=== PATIENT | male | born 1990 | race Caucasian/White ===

== ENCOUNTER 2020-08-04 08:29 | Outpatient (REF) | payer BC, MEDICAID, SELFPAY ==
--- NOTE | 2020-08-04 10:00 | MHC.AU.P13 ---
Adult Audiological Evaluation Date of Visit: 08/04/20 Reason for Appointment: Audiological re-evaluation to monitor hearing loss. Patient was accompanied by his mother to today's visit. She denies any changes to his hearing or medical history. Does patient feel they have a hearing loss?: Yes If Yes, Which Ear?: Both Ears Has hearing been tested previously?: Yes Previous Hearing Test Results: [facility] [place], 03/25/19- Mild hearing loss at 250, 500, and 8000 Hz, dropping to a severe SNHL at 2000 Hz for both ears. Medical History: Medical History: Developmental Disorder/Delay, Down Syndrome Medical History (Other): Moyamoya disease, legally blind Otoscopy: Right Ear: Unremarkable Left Ear: Unremarkable Tympanometry: Right Ear: Normal Middle Ear System (Type A) Left Ear: Normal Middle Ear System (Type A) Hearing Evaluation: Transducer(s) Used: Insert Earphones, Bone Conduction Method: Conventional Audiometry Stimuli Used: Pure Tones Right Ear: Description of Hearing: Mild sensorineural hearing loss (SNHL) from 250-500 Hz, sloping to a moderate SNHL at 1000 Hz, a moderately severe SNHL at 2000 Hz, and rising to a moderate SNHL at 4000 Hz and normal hearing at 8000 Hz. Left Ear: Description of Hearing: Mild sensorineural hearing loss (SNHL) from 250-500 Hz, sloping to a moderately severe SNHL at 1000 Hz, a severe SNHL at 2000 Hz, and rising to a moderately severe SNHL at 4000 Hz and normal hearing at 8000 Hz. Speech Recognition Threshold (SRT): Method Used: Monitored Live Voice Stimuli Used: Spondee Words Right Ear: 35 dBHL Left Ear: 40 dBHL Word Discrimination: Method: Not performed at today's visit. Comparison: Compared to the most recent evaluation: Hearing is stable. Recommendations: Recommendations: Audiological re-evaluation in one year. See Hearing Aid Follow-Up note for more information. Recommendations (Other): Hearing aid maintenance performed today. Left hearing aid is being sent out for repair. Diagnosis: Primary Diagnosis: H90.3 Bilateral Sensorineural Hearing Loss Services Performed: Services Performed: Conditioned Play Audiometry (CPT 65642) Speech Audiometry Threshold (SRT/SAT) (CPT 64531) Tympanometry (CPT 64209) Signature: Provider: Lizbeth Robles, [facility]
== END 2020-08-04 08:30 | disposition home or self-care (01) ==
LOC: HO.SH 08:29
PROVIDERS: PCP Internal Medicine; Referring Provider Internal Medicine; Visit Provider Internal Medicine
DX: H90.3 Sensorineural hearing loss, bilateral (principal)
CPT/HCPCS: 92555; 92567; 92582; 92593; 99499

== ENCOUNTER 2020-08-20 14:56 | Outpatient (REF) | payer BC, MEDICAID, SELFPAY | END 2020-08-20 14:57 | disposition home or self-care (01) | LOC: HO.HAP 14:56 | PROVIDERS: PCP Internal Medicine; Referring Provider Internal Medicine; Visit Provider Internal Medicine | DX: Z46.1 Encounter for fitting and adjustment of hearing aid (principal) | CPT/HCPCS: V5014 ==

== ENCOUNTER 2021-01-15 14:30 | Outpatient (REF) | payer BC, MEDICAID, SELFPAY | END 2021-01-15 14:31 | disposition home or self-care (01) | LOC: HO.HAP 14:30 | PROVIDERS: Visit Provider Internal Medicine | DX: Z46.1 Encounter for fitting and adjustment of hearing aid (principal); H90.3 Sensorineural hearing loss, bilateral | CPT/HCPCS: 92593; 99499 ==

== ENCOUNTER 2021-03-25 13:04 | Outpatient (REF) | payer BC, MEDICAID, SELFPAY ==
--- NOTE | 2021-03-25 14:46 | MHC.AU.AHA ---
Adult Audiological Evaluation Date of Visit: 03/26/21 Reason for Appointment: Audiological evaluation to monitor hearing loss and to pursue new hearing aids. Patient has accompanied by his mother to today's visit. He has a longstanding history of bilateral sensorineural hearing loss and hearing aid use. His right hearing aid is not currently working. His mother denies any changes to his hearing or medical history. Previous Hearing Test Results: [facility] [place], 08/04/2020- Mild to moderately severe sensorineural hearing loss in a cookie-bite configuration bilaterally. Ear History: History of Ear Wax Buildup: Both Ears Medical History: Medical History: Developmental Disorder/Delay, Down Syndrome Medical History: Moyamoya disease, legally blind Hearing Instrument History- Right Ear: Core Oven Tender: Phonak Model: Erik M70-M Serial Number: [id number] Battery Size: 312 Repair Warranty: 01/16/2020 (repair warranty) Loss and Damage Warranty: Dispensed By: [facility] Date of Fittin11/18/2015 Hearing Instrument History- Left Ear: Core Oven Tender: Oticon Model: Erik M70-M Serial Number: [id number] Battery Size: 13 Warranty: 08/22/2021 (repair warranty) Loss and Damage Warranty: Dispensed By: [facility] Date of Fittin11/18/2015 Otoscopy: Right Ear: Unremarkable Left Ear: Non-occluding cerumen removed w/o incident. Clear canal post-wax removal Tympanometry: Tympanometry performed due to: To assess integrity of the middle ear system Right Ear: Normal Middle Ear System (Type A) Left Ear: Hypercompliant Middle Ear System (Type Ad) Hearing Evaluation: Transducer(s) Used: Insert Earphones, Bone Conduction Method: Conditioned Play Audiometry Stimuli Used: Pure Tones Right Ear: Description of Hearing: Mild sensorineural hearing loss (SNHL) from 250-750 Hz, sloping to a moderate SNHL at 1000 Hz, a moderately severe SNHL at 7236-8000 Hz, and rising to a modearte SNHL at 4000 Hz, mild hearing loss at 6000 Hz, and normal hearing at 8000 Hz. Left Ear: Description of Hearing: Mild sensorineural hearing loss (SNHL) from 250-500 Hz, sloping to a moderate SNHL from 750-1000 Hz, a moderately severe SNHL at 1500, a severe SNHL at 2000 Hz, and rising to a moderately severe SNHL at 3000 Hz, moderate SNHL at 4000 Hz, mild hearing loss at 6000 Hz, and normal hearing at 8000 Hz. Speech Recognition Threshold (SRT): Method Used: Monitored Live Voice Stimuli Used: Spondee Words Right Ear: 30 dBHL Left Ear: 40 dBHL Word Discrimination: Method: Not performed at today's visit. Comparison: Compared to the most recent evaluation: Hearing is stable. Recommendations: Audiological re-evaluation in one year. Medical clearance from a physician is required before fitting. Hearing aid maintenance performed today. See Hearing Aid Evaluation report for more information. Patient is due for updated amplification, as his current set if over 5 years old and the right is not currently working. Hearing aid options were discussed. Hearing aids will be ordered once medical clearance is obtained from his PCP. Diagnosis: Primary Diagnosis: H90.3 Bilateral Sensorineural Hearing Loss Services Performed: Pure Tone- Air & Bone (CPT 53922) Speech Audiometry Threshold (SRT/SAT) (CPT 50551) Tympanometry (CPT 53873) Signature: Provider: Lizbeth Robles, CCC-A
--- NOTE | 2021-03-25 15:56 | MHC.AU.HAS ---
Hearing Aid Evaluation Date of Visit: 03/26/21 Historical Information: Description of Hearing: Mild to moderately severe/severe SNHL in a cookie-bite configuration. Current personal amplification information, if applicable: 2016 Oticon Sensei Pro BTEs Summary: Updated amplification is recommended to facilitate improved communication. Patient's mother notes that they have trouble with the retention of the aids behind his ears, as he has small ears and the current aids are too thick. I recommend a slim tube BTE with custom mold and a size 312 battery to minimize the size of the hearing aid. I do not recommend a CAMERON style aid due very narrow canals, moisture concerns, and frequent wax build-up. Patient and his mother were agreeable to this plan. Hearing Aid Prescription: Based on the individual?s shared listening needs, communication environments, dexterity, desire for connectivity, and personal preferences, the following prescription for amplification has been made: Right ear: Garment Alteration Examiner: Phonak Model: Erik M70-M Battery Size: 312 Color: P3 - Sandalwood (P1 - Sand Beige if sandalwood is not available) Tubing: Size 0 slim tube Type of Mold: Skeleton mold Left ear: Left ear prescription to be same as Right Hearing Aid above: Garment Alteration Examiner: Oticon Model: Erik M70-M Battery Size: 13 Color: P3 - Sandalwood (P1 - Sand Beige if sandalwood is not available) Tubing: Size 1 slim tube Type of Mold: Skeleton mold Plan of Care: Earmold Impressions Taken. Medical Clearance to be requested from PCP/ENT. Hearing Instrument Fitting to be scheduled when materials arrive. Checking with patient's insurance to confirm eligibility. Primary Diagnosis: H90.3 Bilateral Sensorineural Hearing Loss Signature: Provider: Katie Altman, Lizbeth, CCC-A
--- NOTE | 2021-03-25 15:57 | MHC.AU.MED ---
Medical Clearance for Hearing Instrumentation Date: 03/25/21 Patient Name: Jason Bedolla Date of : 1990 Referring Provider: Justin Kim MD We have seen your patient on 03/25/21 and have determined that they are a candidate for amplification (See accompanying report). Specifically, they would benefit from: Hearing aid use in both ears There is a statute that addresses Medical Evaluation Requirements prior to fitting a patient with a hearing aid. According to [place] statute [facility] CMR:6.03(1), (a) General. Except as provided in 265 CMR 6.03(1)(b), a outsole caser shall not sell a hearing aid unless the prospective user has presented to the outsole caser a written statement signed by a licensed physician that states that the patient's hearing loss has been medically evaluated and the patient may be considered a candidate for a hearing aid. The medical evaluation must have taken place within the preceding six months. Please note: Due to the [place] Statute referenced above, we cannot accept a signature other than that of a licensed physician. LABORATORY TECH and PA signatures cannot be accepted. I am in agreement with the above recommendation. There is no medical contraindication for hearing instrumentation. Physician Signature Date Physician Name (Printed)
--- NOTE | 2021-03-25 16:01 | MHC.AU.AHA ---
Adult Audiological Evaluation Date of Visit: 03/26/21 Reason for Appointment: Audiological evaluation to monitor hearing loss and to pursue new hearing aids. Patient has accompanied by his mother to today's visit. He has a longstanding history of bilateral sensorineural hearing loss and hearing aid use. His right hearing aid is not currently working. His mother denies any changes to his hearing or medical history. Previous Hearing Test Results: [facility] [place], 08/04/2020- Mild to moderately severe sensorineural hearing loss in a cookie-bite configuration bilaterally. Ear History: History of Ear Wax Buildup: Both Ears Medical History: Medical History: Developmental Disorder/Delay, Down Syndrome Medical History: Moyamoya disease, legally blind Hearing Instrument History- Right Ear: Feed And Farm Management Adviser: OtEndPlay Model: Lion Semiconductori Pro FarelogixE Serial Number: [id number] Battery Size: 13 Repair Warranty: 01/16/2020 (repair warranty) Loss and Damage Warranty: Dispensed By: [facility] Date of Fittin11/18/2015 Hearing Instrument History- Left Ear: Feed And Farm Management Adviser: Oticon Model: Lion Semiconductori Pro FarelogixE Serial Number: [id number] Battery Size: 13 Warranty: 08/22/2021 (repair warranty) Loss and Damage Warranty: Dispensed By: [facility] Date of Fittin11/18/2015 Otoscopy: Right Ear: Unremarkable Left Ear: Non-occluding cerumen removed w/o incident. Clear canal post-wax removal Tympanometry: Tympanometry performed due to: To assess integrity of the middle ear system Right Ear: Normal Middle Ear System (Type A) Left Ear: Hypercompliant Middle Ear System (Type Ad) Hearing Evaluation: Transducer(s) Used: Insert Earphones, Bone Conduction Method: Conditioned Play Audiometry Stimuli Used: Pure Tones Right Ear: Description of Hearing: Mild sensorineural hearing loss (SNHL) from 250-750 Hz, sloping to a moderate SNHL at 1000 Hz, a moderately severe SNHL at 6592-8557 Hz, and rising to a modearte SNHL at 4000 Hz, mild hearing loss at 6000 Hz, and normal hearing at 8000 Hz. Left Ear: Description of Hearing: Mild sensorineural hearing loss (SNHL) from 250-500 Hz, sloping to a moderate SNHL from 750-1000 Hz, a moderately severe SNHL at 1500, a severe SNHL at 2000 Hz, and rising to a moderately severe SNHL at 3000 Hz, moderate SNHL at 4000 Hz, mild hearing loss at 6000 Hz, and normal hearing at 8000 Hz. Speech Recognition Threshold (SRT): Method Used: Monitored Live Voice Stimuli Used: Spondee Words Right Ear: 30 dBHL Left Ear: 40 dBHL Word Discrimination: Method: Not performed at today's visit. Comparison: Compared to the most recent evaluation: Hearing is stable. Recommendations: Audiological re-evaluation in one year. Medical clearance from a physician is required before fitting. Hearing aid maintenance performed today. See Hearing Aid Evaluation report for more information. Patient is due for updated amplification, as his current set if over 5 years old and the right is not currently working. Hearing aid options were discussed. Hearing aids will be ordered once medical clearance is obtained from his PCP. Diagnosis: Primary Diagnosis: H90.3 Bilateral Sensorineural Hearing Loss Services Performed: Pure Tone- Air & Bone (CPT 85571) Speech Audiometry Threshold (SRT/SAT) (CPT 19049) Tympanometry (CPT 30834) Signature: Provider: Lizbeth Robles, CCC-A
== END 2021-03-25 13:05 | disposition home or self-care (01) ==
LOC: HO.SH 13:04
PROVIDERS: Visit Provider Internal Medicine
DX: Z46.1 Encounter for fitting and adjustment of hearing aid (principal); H90.3 Sensorineural hearing loss, bilateral
CPT/HCPCS: 92553; 92555; 92567; 92591; 92593; V5275

== ENCOUNTER 2021-04-21 09:26 | Outpatient (REF) | payer BC, MEDICAID, SELFPAY | END 2021-04-21 09:27 | disposition home or self-care (01) | LOC: HO.HAP 09:26 | PROVIDERS: Visit Provider Internal Medicine | DX: Z46.1 Encounter for fitting and adjustment of hearing aid (principal); H90.3 Sensorineural hearing loss, bilateral | CPT/HCPCS: V5011; V5014; V5020; V5160; V5261; V5264; V5266 ==

== ENCOUNTER 2021-05-17 10:30 | Outpatient (REF) | payer BC, MEDICAID, SELFPAY | END 2021-05-17 10:31 | disposition home or self-care (01) | LOC: HO.HAP 10:30 | PROVIDERS: Visit Provider Internal Medicine | DX: Z13.89 Encounter for screening for other disorder (principal) ==

== ENCOUNTER 2021-08-25 13:21 | Outpatient (REF) | payer BC, MEDICAID, SELFPAY | END 2021-08-25 13:22 | disposition home or self-care (01) | LOC: HO.HAP 13:21 | PROVIDERS: Visit Provider Internal Medicine | DX: Z13.89 Encounter for screening for other disorder (principal) ==

== ENCOUNTER 2021-08-31 16:33 | Outpatient (REF) | payer BC, MEDICAID, SELFPAY | END 2021-08-31 16:34 | disposition home or self-care (01) | LOC: HO.HAP 16:33 | PROVIDERS: Visit Provider Internal Medicine | DX: Z13.89 Encounter for screening for other disorder (principal) ==

== ENCOUNTER 2022-04-25 08:17 | Outpatient (REF) | payer BC, MEDICAID, SELFPAY ==
--- NOTE | 2022-04-28 12:03 | MHC.AU.AHA ---
Adult Audiological Evaluation Date of Visit: 04/25/22 Select Banker Used: Not Applicable Reason for Appointment: Audiologic re-evaluation to determine possible change in hearing ability. Jason has a history of bilateral hearing loss and uses binaural hearing aids. He is accompanied today by his mother, and it is reported there are no medical changes since his last test in March 2021. Previous Hearing Test Results: 03/25/2021 [facility] Mild dropping to severe sensorineural hearing loss at 250-2000 Hz, rising to normal hearing thresholds at 8000 Hz bilaterally. Medical History: Medical History: Developmental Disorder/Delay, Down Syndrome Medical History: Moyamoya disease, legally blind Hearing Instrument History- Right Ear: Forest Officer: Phonak Model: Erik M70-M Serial Number: [id number] Battery Size: 312 Repair Warranty: 07/07/2026 Loss and Damage Warranty: 07/07/2026 Dispensed By: [facility] Date of Fittin04/21/2021 Hearing Instrument History- Left Ear: Forest Officer: Oticon Model: Erik M70-M Serial Number: [id number] Battery Size: 312 Warranty: 07/07/2026 Loss and Damage Warranty: 07/07/2026 Dispensed By: [facility] Date of Fittin04/21/2021 Otoscopy: Right Ear: Non-occluding cerumen Left Ear: Non-occluding cerumen Tympanometry: Tympanometry performed due to: To assess integrity of the middle ear system Right Ear: Normal Middle Ear System (Type A) Left Ear: Normal Middle Ear System (Type A) Hearing Evaluation: Transducer(s) Used: Insert Earphones Bone Conduction Method: Conventional Audiometry Stimuli Used: Pure Tones Right Ear: Description of Hearing: Mild loss at 250 and 500 Hz sloping to moderately-severe sensorineural hearing loss at 2000 Hz, rising to normal hearing thresholds at 8000 Hz Left Ear: Description of Hearing: Mild loss at 250 and 500 Hz sloping to severe sensorineural hearing loss at 2000 Hz, rising to normal hearing thresholds at 8000 Hz Speech Recognition Threshold (SRT): Method Used: Monitored Live Voice Stimuli Used: Spondee Words Right Ear: 30 dB HL Left Ear: 35 dB HL Word Discrimination: Method: Not performed at today's visit. Comparison: Compared to the most recent evaluation: Hearing is stable. Recommendations: Audiological re-evaluation in one year. Will send a reminder card. Hearing aid maintenance performed today. Ordering replacement battery doors. Will schedule appointment when received. Diagnosis: Primary Diagnosis: H90.3 Bilateral Sensorineural Hearing Loss Services Performed: Pure Tone- Air & Bone (CPT 73465) Speech Audiometry Threshold (SRT/SAT) (CPT 71524) Tympanometry (CPT 84099) Signature: Provider: Lizbeth Vaz, [facility]
--- NOTE | 2022-04-28 12:14 | MHC.AU.HFU ---
Hearing Instrument Follow-Up- Binaural Date of Visit: 04/25/22 Right Ear: Automotive Software Engineer: Phonak Model: Erik M70-M Serial Number: [id number] Repair Warranty: 07/07/2026 Loss and Damage Warranty: 07/07/2026 Battery Size: 312 Color: P3 - Sandalwood Tubing: Size 0 slim tube Type of Mold: Skeleton mold SN: [id number] Warranty: 08/08/2021 Dispensed By: [facility] Date of Fittin04/21/2021 Left Ear:Automotive Software Engineer: Phonak Model: Erik M70-M Serial Number: [id number] Repair Warranty: 07/07/2026 Loss and Damage Warranty: 07/07/2026 Battery Size: 312 Color: P3 - Sandalwood Tubing: Size 1 slim tube Type of Mold: Skeleton mold SN: [id number] Warranty: 08/08/2021 Type of Wax Guard: Dispensed By: [facility] Date of Fittin04/21/2021 Follow-Up Summary: Mother reports the earmolds consistently come off the slim tubes and having difficulty keeping aids in when removing his face mask. Discussed options of type of face mask for placement of elastics or trying OtoClip, but mother feels they do not want these changes at this time. Contacted Lenore at [facility] to discuss the problem with earmold coming off thin tubes. However, mother wants to stay with the soft material and [facility] says would have to change to had material. There are no other changes [facility] can make. Today I SUPER GLUED MOLDS TO THIN TUBES to see if this would help. Cleaned aids, microphones, and contacts, changed slim tubes. There is evidence of moisture in the left (?) aid and a sticker which helps protect further moisture in the battery door came off during cleaning. As I also could not clean battery door completely, replacement doors were ordered. CALL TO SCHEDULE APPOINTMENT WHEN REPLACEMENT DOORS IN. WILL TEACH MOTHER HOW TO CHANGE DOORS AND GIVE AN EXTRA SET OF DOORS. Recommendations: Hearing instrument follow-up or maintenance as needed. Please contact our clinic with any questions or concerns. Diagnosis Code(s):Primary Diagnosis: H90.3 Bilateral Sensorineural Hearing Loss Signature:Provider: Robina Vaz, [facility]
== END 2022-04-25 08:18 | disposition home or self-care (01) ==
LOC: HO.SH 08:17
PROVIDERS: Visit Provider Internal Medicine
DX: Z01.118 Encounter for examination of ears and hearing with other abnormal findings (principal); H90.3 Sensorineural hearing loss, bilateral
CPT/HCPCS: 92553; 92555; 92567

== ENCOUNTER 2022-05-10 12:48 | Outpatient (REF) | payer BC, MEDICAID, SELFPAY | END 2022-05-10 12:49 | disposition home or self-care (01) | LOC: HO.HAP 12:48 | PROVIDERS: Visit Provider Internal Medicine | DX: Z13.89 Encounter for screening for other disorder (principal) ==

== ENCOUNTER 2022-09-08 08:54 | Outpatient (REF) | payer BC, MEDICAID, SELFPAY ==
--- NOTE | 2022-09-09 15:20 | MHC.AU.HA3 ---
Hearing Instrument Follow-Up- Binaural Date of Visit: 09/08/22 Right Ear: Missael, Model, Color, Serial Number: Simon Pena70-M, #[id number] Boat Outfitter Repair Warranty: 07/07/2026 Boat Outfitter Loss and Damage Warranty: 07/07/2026 [facility] rService Plan: Battery Size: 312 Dispensed By: [facility] Date of Fittin04/21/2021 Left Ear: Missael, Model, Color, Serial Number: Simon Pena70-M, #[id number] Boat Outfitter Repair Warranty: 07/07/2026 Boat Outfitter Loss and Damage Warranty: 07/07/2026 [facility] Service Plan: Battery Size: 312 Dispensed By: [facility] Date of Fittin04/21/2021 Follow-Up Summary: Patient's left mold is not staying on the slim tube. Inspection revealed a tear in the top of the mold, which is causing the slim tube to easily slip out. Patient's mother would like to go back to the traditional tone hooks and tubing, instead of the slim tubes, as they seem to stay on his ears better. Impressions were taken bilaterally without incident and will be sent to [employer]. One pair will be billed to insurance. His mother would like to purchase a second pair to use with his back-up hearing aids. Quoted $245. Recommendations: Patient will be contacted when materials have arrived. Diagnosis Code(s): Primary Diagnosis: H90.3 Bilateral Sensorineural Hearing Loss Signature: Provider: Adolfo Recinos, [facility]
== END 2022-09-08 08:55 | disposition home or self-care (01) ==
LOC: HO.HAP 08:54
PROVIDERS: Visit Provider Internal Medicine
DX: Z46.1 Encounter for fitting and adjustment of hearing aid (principal); H90.3 Sensorineural hearing loss, bilateral
CPT/HCPCS: V5275

== ENCOUNTER 2022-11-22 15:52 | Outpatient (REF) | payer BC, MEDICAID, SELFPAY ==
--- NOTE | 2022-11-22 17:01 | MHC.AU.HFU ---
Hearing Instrument Follow-Up- Binaural Date of Visit: 11/22/22 Right Ear: Phonak Erik M70-M, #[id number], sandalwood Repair Warranty: 07/07/2026 Loss and Damage Warranty: 07/07/2026 Battery Size: 312 Type of Mold: Skeleton mold microsonic Dispensed By: [facility] Date of Fittin04/21/2021 Left Ear: Phonak Erik M70-M, #[id number], sandalwood Repair Warranty: 07/07/2026 Loss and Damage Warranty: 07/07/2026 Battery Size: 312 Type of Mold: Skeleton mold microsonic Dispensed By: [facility] Date of Fittin04/21/2021 Follow-Up Summary: The patient is here today for an ear mold fitting, accompanied by his mother. Erik M70 BTEs slim tubing was replaced with traditional tone hooks bilaterally. New ear molds were cut and measured to the patient's ears. Phonak target programming was updated to reflect tone hooks, most recent audiogram and feedback manager outreach was re-run. Patient reported a comfortable fit and good sound bilaterally. Old slim tubing and molds were given to patient's mother per request. A second pair of ear molds were cut and measured to the patient's ears for his back-up Oticon BTE hearing aids. Good fit noted as well. One pair of ear molds billed to insurance. One pair was paid for out of pocket, paid $245. Additional follow-up as needed. Diagnosis Code(s): Primary Diagnosis: H90.3 Bilateral Sensorineural Hearing Loss Signature: Provider: Lizbeth Marques, [facility]
== END 2022-11-22 15:53 | disposition home or self-care (01) ==
LOC: HO.HAP 15:52
PROVIDERS: Visit Provider Internal Medicine
DX: Z46.1 Encounter for fitting and adjustment of hearing aid (principal); H90.3 Sensorineural hearing loss, bilateral
CPT/HCPCS: V5264

== ENCOUNTER 2022-11-22 16:25 | Outpatient (REF) | payer SELFPAY | END 2022-11-22 16:26 | disposition home or self-care (01) | LOC: HO.HAP 16:25 | PROVIDERS: Visit Provider Internal Medicine | DX: Z46.1 Encounter for fitting and adjustment of hearing aid (principal); H90.3 Sensorineural hearing loss, bilateral | CPT/HCPCS: V5264 ==

== ENCOUNTER 2023-01-13 15:17 | Outpatient (REF) | payer BC, MEDICAID, SELFPAY | END 2023-01-13 15:18 | disposition home or self-care (01) | LOC: HO.HAP 15:17 | PROVIDERS: Visit Provider Internal Medicine | DX: Z13.89 Encounter for screening for other disorder (principal) ==

== ENCOUNTER 2024-03-25 08:44 | Outpatient (REF) | payer BC, MEDICAID, SELFPAY ==
--- NOTE | 2024-03-25 09:49 | MHC.AU.HA3 ---
Hearing Instrument Follow-Up- Binaural Date of Visit: 03/25/24 Right Ear: Missael, Model, Color, Serial Number: Simon Pena70-M, #[id number], sandalwood Manager E Commerce Repair Warranty: 07/07/2026 Manager [employer] Commerce Loss and Damage Warranty: 07/07/2026 Battery Size: 312 Earmold/Dome/CShell/SlimTip:Skeleton mold microsonic Dispensed By: [facility] Date of Fittin04/21/2021 Left Ear: Missael, Model, Color, Serial Number: Simon Pena70-M, #[id number], sandalwood Manager E Commerce Repair Warranty: 07/07/2026 Manager [employer] Commerce Loss and Damage Warranty: 07/07/2026 Battery Size: 312 Earmold/Dome/CShell/SlimTip: Skeleton mold microsonic Dispensed By: [facility] Date of Fittin04/21/2021 Follow-Up Summary: Here for evaluation. See Audiogram. Maintenance performed on current pair of Phonak hearing aids as well as back up left Oticon hearing aid. All tubes stiff and in need of replacement. Cleaned aids, cleaned earmolds, replaced tubing, cleaned debris out of tonehooks. Listening check positive for all hearing aids after cleaning. Recommendations: Recommendations: Hearing instrument follow-up or maintenance as needed. Diagnosis Code(s): Primary Diagnosis: H90.3 Bilateral Sensorineural Hearing Loss Signature: Provider: Adolfo Storm, [facility]
== END 2024-03-25 08:45 | disposition home or self-care (01) ==
LOC: HO.SH 08:44
PROVIDERS: Visit Provider Internal Medicine
DX: Z01.118 Encounter for examination of ears and hearing with other abnormal findings (principal); H90.3 Sensorineural hearing loss, bilateral
CPT/HCPCS: 92555; 92582; 92593; 99499

== ENCOUNTER 2025-08-20 10:11 | Outpatient (REF) | payer BC, MEDICAID, SELFPAY ==
--- NOTE | 2025-08-20 16:54 | MHC.AU.HA3 ---
Hearing Instrument Follow-Up- Binaural Date of Visit: 08/20/25 Right Ear: Missael, Model, Color, Serial Number: Simon Valencia M70-M SN: [id number] Color: Sandalwood Subcontract Manager Repair Warranty: 07/07/2026 Subcontract Manager Loss and Damage Warranty: 07/07/2026 Battery Size: 312 Earmold/Dome/CShell/SlimTip:Skeleton mold microsonic Dispensed By: [facility] Date of Fittin04/21/2021 Left Ear: Missael, Model, Color, Serial Number: Simon Valencia M70-M SN: [id number] Color: Sandalwood Subcontract Manager Repair Warranty: 07/07/2026 Subcontract Manager Loss and Damage Warranty: 07/07/2026 Battery Size: 312 Earmold/Dome/CShell/SlimTip: Skeleton mold microsonic Dispensed By: [facility] Date of Fittin04/21/2021 Follow-Up Summary: Accompanied by mom Leena. Updated hearing test - see audio. Reported newer right Phonak CALDERÓN has static/distortion. Confirmed via listening check - Sent to [employer]. Cleaned 4 other HAs (4) (Left Phonak Erik, left and right Oticon Sensei Pros, and left older Oticon BTE - no model name) and 7 EMs (2) [id number]. Mom reported she prefers to have back up EMs ready once tubing gets hard. Replaced all 7 tubes. Vacuumed microphones. Cleaned battery contacts and doors. Ran through dehumidifier. Listening check demonstrated HAs amplifying. Currently wearing Oticon Sensei Pro BTEs until right Phonak CALDERÓN returns from repair. Mom has all other HAs and EMs to hold as back up. Recommendations:Patient will be contacted when materials have arrived. Diagnosis Code(s): Primary Diagnosis: H90.3 Bilateral Sensorineural Hearing Loss Signature: Provider: Adolfo Garg, [facility]
--- OUTSIDE RECORDS SUMMARY | 2025-08-20 19:23 | XMS_ITS | Encounter Summary ---
Author Organization [facility] Address [address] [place] [address] Phone Care Team Providers Care Exercise Scientist Name Role Phone Justin Kim Primary Care Provider Justin Kim Unavailable Justin Kim Unavailable Justin Kim Unavailable Encounter Details Date Type Department Care Team (Late st Contact Info) Description 04/15/2024 Abstract Health Information Management [address] [place] [id number] Provider, Unable To Verify [address] [place] [address] Social History Tobacco Use Types Packs/Day Years Used Date Smoking Tobacco: Never Assessed Sex and Gender Information Value Date Recorded Sex Assigned at Not on file Legal Sex Male 2:24 PM EDT Gender Identity Not on file Sexual Orientation Not on file documented as of this encounter Plan of Treatment Not on file documented as of this encounter Visit Diagnoses Not on filedocumented in this encounter Care Teams Exercise Scientist Relationship Specialty Start Date End Date Justin Kim [address] [place] [address] PCP - General 09/02/15 Justin Kim [address] [place] [address] PCP - Insurance PCP 04/03/18 Justin Kim [address] [place] [address] PCP - Clinical PCP 09/09/15 Justin Kim [address] [place] [address] PCP - Insurance Identified PCP 04/11/24 documented as of this encounter
--- OUTSIDE RECORDS SUMMARY | 2025-08-20 19:23 | XMS_ITS | Encounter Summary ---
Author Organization [facility] Address [address] [place] [address] Care Team Providers Care Dining Manager Name Role Phone Justin Kim MD Primary Care Provider Unavail able Reason for Visit * Reason Onset Date Comments Call From Patient Family 02/13/2018 Encounter Details Date Type Department Care Team Description 02/13/2018 Telephone Adult Medicine [address] [address] Justin Kim MD Call From Patient Family Social History Tobacco Use Types Packs/Day Years Used Date Smoking Tobacco: Never Smokeless Tobacco: Never Alcohol Use Standard Drinks/Week Comments No 0 (1 standard drink = 0.6 oz pur e alcohol) Sex Assigned at Date Recorded Not on file documented as of this encounter Miscellaneous Notes * Telephone Encounter - Reyna Lovett - 02/13/2018 11:20 AM EDT Caller requesting call back from provider: Is the caller the patient? NO If caller is not the patient, what is the callers name? Leena- mother- on verbal Reason for call back: Leena states she is returning [employer]'s call, I did relay the message that the form was ready for pick-up, but she states there was a message stating that there were questions with the other form- she can be reached at the above number after 3:00 Caller offered to speak with the nurse for assistance: YES Response: Patient offered to speak with nurse for assistance and patient agreed. Message forwarded to nurse. documented in this encounter Plan of Treatment Not on file documented as of this encounter Visit Diagnoses Not on filedocumented in this encounter Care Teams Dining Manager Relationship Specialty Start Date End Date Justin Kim MD PCP - General Internal Medicine 11/09/12 documented as of this encounter
--- OUTSIDE RECORDS SUMMARY | 2025-08-20 19:23 | XMS_ITS | Encounter Summary ---
Author Organization [facility] Address [address] [place] [address] Care Team Providers Care Dolphin Researcher Name Role Phone Justin Kim MD Primary Care Provider Unavail able Encounter Details Date Type Department Care Team Description 03/11/2021 Pt. Non Urgent Medical Question Medicine/Pediatrics - [address] [address] Justin Kim MD Social History Tobacco Use Types Packs/Day Years Used Date Smoking Tobacco: Never Smokeless Tobacco: Never Alcohol Use Standard Drinks/Week Comments No 0 (1 standard drink = 0.6 oz pur e alcohol) Sex Assigned at Date Recorded Not on file documented as of this encounter Miscellaneous Notes * Telephone Encounter - Judith Zhao M.A. - 03/11/2021 4:31 PM EDTFrom: Jason Bedolla To: Melissa Kim Sent: 03/11/2021 4:25 PM EDT Subject: MRI Hi Dr. Kim, I am writing to you due to a phone call I received from [employer]. Is there a reason that Jason's MRI is not being conducted at [facility] where it has been since he was around 8 years old,I'm just wondering because the previous times you also sent him to [facility]. My concern with [facility] is that they do not have his records to refer back to as they compare this upcoming MRI with his previous ones. Also when I called [facility] they said they did not have orders for anesthesia (Jason has always been put under anesthesia for the MRI because he would be able to stay in one by himself). They also said that there would be 2 different appointments one for an MRA (I believe at [facility] they doeverything at once) and one for an MRI with contrast. Can you cla rify this misunderstanding, I reached out recently because there were orders for a different imaging place with no anesthesia and I was under the impression from the response back that everything would be the way it was previously. I apologize for the long email, but as a concerned parent I just want to make sure this is addressed. Thank you, Leena Bedolla documented in this encounter Plan of Treatment Not on file documented as of this encounter Visit Diagnoses Not on filedocumented in this encounter Care Teams Dolphin Researcher Relationship Specialty Start Date End Date Justin Kim MD PCP - General Internal Medicine 11/09/12 documented as of this encounter
--- OUTSIDE RECORDS SUMMARY | 2025-08-20 19:23 | XMS_ITS | Encounter Summary ---
Author Organization [facility] Address [address] [place] [address] Care Team Providers Care Guest Advisor Name Role Phone Justin Kim MD Primary Care Provider Unavail able Encounter Details Date Type Department Care Team Description 11/23/2012 Transfer Records Medical Records [address] [place] [phone] Abstract, Provider Social History Tobacco Use Types Packs/Day Years [...] on filedocumented in this encounter Care Teams Guest Advisor Relationship Specialty Start Date End Date Justin Kim MD PCP - General Internal Medicine 11/09/12 documented as of this encounter
--- OUTSIDE RECORDS SUMMARY | 2025-08-20 19:23 | XMS_ITS | Encounter Summary ---
Author Organization [facility] Address [address] [place] [address] Care Team Providers Care Insurance Policy Issue Clerk Name Role Phone Justin Kim MD Primary Care Provider Unavail able Encounter Details Date Type Department Care Team Description 02/05/2018 Wool Washer Feeder Report Medical Records [address] [place] [address] Kwame De La Fuente MD Social History Tobacco Use Types Packs/Day [...] on filedocumented in this encounter Care Teams Insurance Policy Issue Clerk Relationship Specialty Start Date End Date Justin Kim MD PCP - General Internal Medicine 11/09/12 documented as of this encounter
--- OUTSIDE RECORDS SUMMARY | 2025-08-20 19:23 | XMS_ITS ---
Author Name [facility] Organization Unknown Care Team Organization Name Specialty Phone Email Start Date End [facility] te [facility] Termed, PROVIDER Primary Care 08/09/202205/02
--- OUTSIDE RECORDS SUMMARY | 2025-08-20 19:23 | XMS_ITS | Patient Health Record ---
Author Organization [facility] Address [address] [place] [address] Care Team Providers Care Mental Health Director Name Role Phone Dayo Lazar MD Primary Care Provider Gonzalo Sheikh Unavailable [phone] Allergies Allergen (clinical drug ingredient) Drug/Non Drug Allergy documented on EMR Reaction Allergy Type Onset Date Status Biaxin rash Drug Allergy Active Cefzil swelled up Drug Allergy Active erythromycin Erythromycin rash Drug Allergy A ctive Z Pac rash Drug Allergy Active Adhesive Tape rash Drug Allergy Act kannan Reason For Referral No Information Medications Medication SIG (Take, Route, Fr equency, Duration) Notes Start Date End Date Status Claritin 5 MG 2 tablets Orally Onc e a day; Duration: 30 day(s) Active Vitamin D 1000 UNIT 1 tablet Orally Once a day; Duration: 30 day(s) Active Aspirin 81 MG 1 tablet Orally Once a day; Duration: 30 day(s) Active Problems Problem Type SNOMED Code ICD Code Onset Dates Problem Status W/U Status Risk Notes Problem Plantar fasciitis (536371069) Plantar Fasciitis (728.71) Active confirmed Problem Congenital pes planus (03210705) Flat Foot, Congenital (754.61) Active confirmed Problem Pain in limb (52771879) Pain in Limb (729.5) Active confirmed Plan Of Treatment Pending Test Test Name Order Date X ray : Foot, left 2V 12/12/2012 X ray : Foot, right 2V 12/12/2012 Insurance Providers Payer Name Payer Address Payer Phone Subscriber Number Group Number Insured Name Patient Relationship to Insured Coverage Start Date Coverage End Date [facility] [address] [place] [address] [id number] Jason Bedolla Self - patient is the insured Medical (General) History Medical History History ICD Code psoriasis stroke reflux warts joint implants/screws Down's syndrome pneumonia legally blind Surgical History Surgery Date(Month/Year) VSD 11/1989 brain surgery 07/1994 hip surgry
--- OUTSIDE RECORDS SUMMARY | 2025-08-20 19:23 | XMS_ITS | Clinical Summary ---
Author Organization [facility] Address [address] [place] [address] Phone Care Team Providers Care Sweet Potato Disintegrator Name Role Phone Justin Kim Primary Care Provider [phone] Justin Kim Unavailable Justin Kim Unavailable Justin Kim Unavailable Social History Tobacco Use Types Packs/Day Years Used Date Smoking Tobacco: Never Assessed Sex and Gender Information Value Date Recorded Sex Assigned at Not on file Legal Sex Male 2:24 PM EDT Gender Identity Not on file Sexual Orientation Not on file Last Filed Vital Signs Vital Sign Reading Time Taken Comments Blood Pressure - - Pulse - - Temperature - - Respiratory Rate - - Oxygen Saturation - - Inhaled Oxygen Concentration - - Weight 108 kg (237 lb 14 oz) 04/18/2018 2:17 PM EDT Height - - Body Mass Index - - Plan of Treatment Health Maintenance Due Date Last Done Comments Chlamydia and Gonorrhea Screening 1988 HIV Screening 1988 Varicella Vaccines (2 of 2 - 2-dose childhood series) 12/14/1995 09/21/1995 Hepatitis C Screening 2006 Influenza Vaccine (#1) 2025 3, 06/17/2022, 06/09/2021, Additional history exists DTaP/Tdap/Td Vaccines (8 - Td or Tdap) 07/13/2028 07/13/2018, 12/21/2007, 11/30/2000, Additional history exists HIB Vaccines Completed 05/16/1990, 05/16/1990 IPV Vaccines Completed 11/24/1993, 05/02, 05/16/1990, Additional history exists Hepatitis B Vaccines Completed 06/25/1999, 01/20/1999, 12/18/1998 MMR Vaccines Completed 11/30/2000, 02/13/1990 Meningococcal Vaccine Completed 12/18/2006 Hepatitis A Vaccines Completed 06/21/2007, 12/19/19 07 Pneumococcal Vaccine: Pediatrics (0 to 5 Years) and At-Risk Patients (6 to 49 Years) Aged Out 07/06/2020 No longer eligible based on patient's age to complete this topic HPV Vaccines (No Doses Required) Completed Meningococcal B Vaccine Aged Out No l onger eligible based on patient's age to complete this topic Rotavirus Vaccines Aged Out No longer eligible based on patient's age to complete this [place] [id number] [facility] Care Teams Sweet Potato Disintegrator Relationship Specialty Start Date End Date Justin Kim [address] [place] [address] PCP - General 09/02/15 Justin Kim [address] [place] [address] PCP - Insurance PCP 04/03/18 Justin Kim [address] [place] [address] PCP - Clinical PCP 09/09/15 Justin Kim [address] [place] [address] PCP - Insurance Identified PCP 04/11/24
--- OUTSIDE RECORDS SUMMARY | 2025-08-20 19:23 | XMS_ITS | Clinical Summary ---
Author Organization [facility] Address [address] [place] [phone] Phone Care Team Providers Care Investigation Division Captain Name Role Phone Justin Kim MD Primary Care Provider [phone] Allergies Active Allergy Reactions Criticality Noted Date Comments Cephalexin Swelling High 04/03/2014 Clarithromycin 11/19/2012 Medications mometasone (ELOCON) 0.1 % cream 10/19/2024 Active naproxen (NAPROSYN) 125 mg/5 mL suspension 06/03/2025 Active omeprazole (FIRST-OMEPRAZOL E) 2 mg/mL solution Take 10 mL (20 mg total) by mouth. 08/10/2021 Active prednisoLONE acetate (PRED FORTE) 1 % ophthalmic suspension 06/14/2025 Active Zepbound 2.5 mg/0.5 mL injection 03/24/2025 Active Encounters Date Type Department Care Team Description 08/11/2025 9:30 AM EST Office Visit Orthopedic Surgery [facility] [address] [address] Rush Pickering, DPM Plantar fascial fibromatosis (Primary Dx); Equinus contracture of ankle from Last 3 Months Surgical History Surgery Date Site/Laterality Comments CARDIAC SURGERY 1989 PROCEDURE: HISTORICAL HEART SURGERY(ASD,VSD,VALVES); COMMENT: VSD repair EYE SURGERY 1990 PROCEDURE: HISTORICAL EYE SURGERY; COMMENT: strabismus; Dr Jalloh OTHER SURGICAL HISTORY PROCEDURE: ---- OTHER ----; COMMENT: pin in R hip TONSILLECTOMY 1994 PROCEDURE: HISTORICAL TONSILLECTOMY ADENOIDECTOMY PROCEDURE: HISTORICAL ADENOIDECTOMY OTHER SURGICAL HISTORY 1993 PROCEDURE: ---- OTHER ----; COMMENT: saldana-saldana surgery OTHER SURGICAL HISTORY PROCEDURE: ---- OTHER ----; COMMENT: undescended testicle surgery OTHER SURGICAL HISTORY 2015 Right PROCEDURE: ---- OTHER ----; COMMENT: eye procedure with Dr Peck MULTIPLE TOOTH EXTRACTIONS 04/03/2019 PROCEDURE: EACH ADD TOOTH EXTRACTION Medical History Medical History Date Comments Gout 02/10/2013 DX:Gout; COMMENT : Typical symptoms and uric acid level of 10 Down syndrome 11/21/2012 DX:Down syndrome Dysphagia 11/21/2012 DX:Dysphagia; CO MMENT: Sees speech therapist for choking issue with food; Dr Pete Esophagitis 08/02/2013 DX:Esophagitis; COMMENT: With distal esophageal stricture dilated on EGD 07/29/13 Dr Pete Hard of hearing 11/21/2012 DX:Hard of heari ng; COMMENT: Next hearing test due summer 2014 History of slipped capital f emoral epiphysis (SCFE) 11/21/2012 DX:History of slipped capita l femoral epiphysis (SCFE); COMMENT: Pin R hip History of stroke 11/21/2012 DX:History of stroke; COMMENT: D/t Jaquan dz; Dr Jeter, [facility], followed with q3yr MRI/MRA Legally blind 11/21/2012 DX:Legally blind Mild aortic regurgitation 11/21/2012 DX:Mil d aortic regurgitation; COMMENT: S/p VSD repair Morbid obesity (CMS/HCC V24, CMS/HCC V28) 04/17/2015 DX:Morbid obesity (HCC) 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 Plantar fasciitis 11/21/2012 DX:Plantar fas ciitis Family History Medical History Relation Name Comments Hypertension Father Prostate cancer Maternal Grandfather Breast cancer Maternal Grandmother Other: Other Mother BRCA negative Breast cancer Other cousin Colon cancer Paternal Grandfather in his 60's Coronary artery disease Paternal Grandfather later in life Diabetes Paternal Grandfather Hypertension Paternal Grandfather Coronary artery disease Paternal Grandmother in her 40's Hypertension Paternal Grandmother Stroke Paternal Grandmother Alcohol/Drug Uncle 1 Prostate cancer Uncle 2 Relation Name Status Comments Father Maternal Grandfather Maternal Grandmother Mother Other Paternal Grandfather Paternal Grandmother Uncle 1 Uncle 2 Social History Tobacco Use Types Packs/Day Years Used Date Smoking Tobacco: Never Smokeless Tobacco: Never Alcohol Use Standard Drinks/Week Comments No 0 (1 standard drink = 0.6 oz pur e alcohol) Sex and Gender Information Value Date Recorded Sex Assigned at Not on file Legal Sex Male 6:39 PM EST Gender Identity Not on file Sexual Orientation Not on file Obstetrics History Plan of Treatment Health Maintenance Due Date Last Done Comments HPV Vaccines (1 - 3-dose SCDM series) 2015 Depression Screening 10/02/2024 Cholesterol Screening (Lipid Panel) 05/16/2025 HIV Screening 05/16/2025 Hepatitis C Screening 05/16/2025 Social Influencers of Health Screening 05/16/2025 COVID-19 Vaccine ( season) 2025 08/10/2024, 10/01/2023, 06/17/2022, Additional history exists Influenza Vaccine (#1) 2025 , 09/16/2023, 06/17/2022, Additional history exists DTaP,Tdap,and Td Vaccines (9 - Td or Tdap) 07/13/2028 07/13/2018, 12/21/2007, 11/30/2000, Additional history exists RSV Immunization Adult Patients (1 - 1-dose 75+ series) 2063 HIB Vaccines Completed 05/16/1990, 05/16/1990 IPV Vaccines Completed 11/24/1993, 05/02, 05/16/1990, Additional history exists Varicella Vaccines Aged Out 09/21/1995 No longer eligible based on patient's age to complete this topic Hepatitis B Vaccines Completed 06/25/1999, 01/20/1999, 12/18/1998 MMR Vaccines Completed 11/30/2000, 02/13/1990 Meningococcal ACWY Vaccine Completed 12/18/2006 Hepatitis A Vaccines Completed 06/21/2007, 12/19/19 07 Pneumococcal Vaccine: Pediatrics (0 to 5 Years) and At-Risk Patients (6 to 49 Years) Aged Out 07/06/2020 No longer eligible based on patient's age to complete this topic Meningococcal B Vaccine Aged Out No l onger eligible based on patient's age to complete this topic RSV Immunization Patients Under 20 months Aged Out No longer eligible based on patient's age to complete this topic Insurance [place] [address] MEDICAID - [place] Care Teams Investigation Division Captain Relationship Specialty Start Date End Date Justin Kim MD [address] [place] [id number] PCP - General Internal Medicine 05/16/25
--- OUTSIDE RECORDS SUMMARY | 2025-08-20 19:23 | XMS_ITS | Encounter Summary ---
Author Organization [facility] Address [facility] [place] [address] Care Team Providers Care Firmware Engineer Name Role Phone uJstin Kim MD Primary Care Provider Unavail able Encounter Details Date Type Department Care Team Description 03/24/2021 Poultry Picker Report Medical Records [address] [place] [address] Kwame De La Fuente MD Social History [...] on filedocumented in this encounter Care Teams Firmware Engineer Relationship Specialty Start Date End Date Justin Kim MD PCP - General Internal Medicine 11/09/12 documented as of this encounter
--- OUTSIDE RECORDS SUMMARY | 2025-08-20 19:23 | XMS_ITS | Encounter Summary ---
[facility] Address [address] [place] [address] Care Team Providers Care Corporate Compliance Officer Name Role Phone Justin Kim MD Primary Care Provider Unavail able Encounter Details Date Type Department Care Team Description 02/06/2016 Night Triage Doc Medical Records [address] [place] [address] Abstract, Provider Social History Tobacco Use Types [...] on filedocumented in this encounter Care Teams Corporate Compliance Officer Relationship Specialty Start Date End Date Justin Kim MD PCP - General Internal Medicine 11/09/12 documented as of this encounter
--- OUTSIDE RECORDS SUMMARY | 2025-08-20 19:23 | XMS_ITS | Encounter Summary ---
Author Organization [facility] Address [address] [place] [address] Care Team Providers Care Developer Analyst Name Role Phone Justin Kim MD Primary Care Provider Unavail able Reason for Referral * EXTERNAL (Routine) - Authorized/Booked Specialty Diagnoses / Procedures Referred By Contact Referred To Contact Otolaryngology / Hearing Procedures REFERRAL TO HEARING TEST Justin Kim MD [address] [place] [address] Hearing, Imelda Freeman [address] [place] [id number] Referral ID Status Reason Start Date Expiration Date V isits Requested Visits Authorized ORDER FAXED Authorized/B ooked 09/17/2018 12/16/2018 1 1 Reason for Visit * Reason Onset Date Comments Provider Call Back 09/17/2018 Encounter Details Date Type Department Care Team Description 09/17/2018 Telephone Adult Medicine [address] [address] Justin Kim MD Provider Call Back Social History Tobacco Use Types Packs/Day Years Used Date Smoking Tobacco: Never Smokeless Tobacco: Never Alcohol Use Standard Drinks/Week Comments No 0 (1 standard drink = 0.6 oz pur e alcohol) Sex Assigned at Date Recorded Not on file documented as of this encounter Miscellaneous Notes * Telephone Encounter - Justin Kim MD - 09/17/2018 10:07 AM EST ordered * Telephone Encounter - Corry Wilson L.P.N. - 09/17/2018 10:06 AM EST Referral pended ,pt is at appt now. * Telephone Encounter - Nahed Salazar - 09/17/2018 9:22 AM EST Caller requesting call back from provider: Is the caller the patient? NO If caller is not the patient, what is the callers name? chiki Callers relationship to patient? N/A If person calling is not the patient themselves, is there a verbal release in FYI or permanent comments for this person: YES Reason for call back: Looking for orders for a hearing test can fax to [phone] Caller offered to speak with the nurse for assistance: YES Response: Patient offered to speak with nurse for assistance and patient agreed. Message forwarded to nurse. documented in this encounter Plan of Treatment Not on file documented as of this encounter Visit Diagnoses Not on filedocumented in this encounter Care Teams Developer Analyst Relationship Specialty Start Date End Date Justin Kim MD PCP - General Internal Medicine 11/09/12 documented as of this encounter
--- OUTSIDE RECORDS SUMMARY | 2025-08-20 19:23 | XMS_ITS | Encounter Summary ---
Author Organization [facility] Address [address] [place] [address] Care Team Providers Care Education Nurse Name Role Phone Justin Kim MD Primary Care Provider Unavail able Encounter Details Date Type Department Care Team Description 04/06/2013 Cook Helper Pastry Report Medical Records [address] [place] [phone] Kwame De La Fuente MD Social History [...] on filedocumented in this encounter Care Teams Education Nurse Relationship Specialty Start Date End Date Justin Kim MD PCP - General Internal Medicine 11/09/12 documented as of this encounter
--- OUTSIDE RECORDS SUMMARY | 2025-08-20 19:23 | XMS_ITS | Encounter Summary ---
Author Organization [facility] Address [address] [place] [address] Care Team Providers Care Statistician Applied Name Role Phone Justin Kim MD Primary Care Provider Unavail able Encounter Details Date Type Department Care Team Description 04/03/2018 Orders Only Medicine/Pediatrics - [address] [phone] Justin Kim MD Saldana-saldana disease; Down syndrome Social History Tobacco Use Types Packs/Day Years Used Date Smoking Tobacco: Never Smokeless Tobacco: Never Alcohol Use Standard Drinks/Week Comments No 0 (1 standard drink = 0.6 oz pur e alcohol) Sex Assigned at Date Recorded Not on file documented as of this encounter Plan of Treatment Not on file documented as of this encounter Procedures Procedure Name Priority Date/Time Associated Diagnosis Comments MRA/MRV HEAD; NO CONTRAST MAT Routine 03/29/2018 Saldana-saldana disease Down syndrome MRI OF BRAIN WITH AND WITHOUT CONTRAST Routine 03/29/2018 Saldana-saldana disease documented in this encounter Results * MRI OF BRAIN AND FURTHER SEQUENCES W/WO CON (03/29/2018) Justin Kim MD MRI * MRA/MRV HEAD; NO CONTRAST MAT (03/29/2018) Justin Kim MD MRI documented in this encounter Visit Diagnoses Diagnosis Saldana-saldana disease [place] disease Down syndrome Down's syndrome documented in this encounter Care Teams Statistician Applied Relationship Specialty Start Date End Date Justin Kim MD PCP - General Internal Medicine 11/09/12 documented as of this encounter
--- OUTSIDE RECORDS SUMMARY | 2025-08-20 19:23 | XMS_ITS | Encounter Summary ---
Author Organization [facility] Address [address] [place] [address] Care Team Providers Care 3Rd Grade Teacher Name Role Phone Justin Kim MD Primary Care Provider Unavail able Encounter Details Date Type Department Care Team Description 07/19/2021 Pipe Threader Report Medical Records [address] [place] [address] Margarette Segal MD Social History Tobacco Use Types Packs/Day [...] on filedocumented in this encounter Care Teams 3Rd Grade Teacher Relationship Specialty Start Date End Date Justin Kim MD PCP - General Internal Medicine 11/09/12 documented as of this encounter
--- OUTSIDE RECORDS SUMMARY | 2025-08-20 19:23 | XMS_ITS | Encounter Summary ---
Author Organization [facility] Address [address] [place] [address] Care Team Providers Care Cement Patcher Name Role Phone Justin Kim MD Primary Care Provider Unavail able Encounter Details Date Type Department Care Team Description 05/01/2017 Transformation Specialist Report Medical Records [address] [place] [id number] Social History Tobacco Use Types Packs/Day Years [...] on filedocumented in this encounter Care Teams Cement Patcher Relationship Specialty Start Date End Date Justin Kim MD PCP - General Internal Medicine 11/09/12 documented as of this encounter
--- OUTSIDE RECORDS SUMMARY | 2025-08-20 19:23 | XMS_ITS | Encounter Summary ---
Author Organization [facility] Address [address] [place] [address] Care Team Providers Care Roadmaster Name Role Phone Justin Kim MD Primary Care Provider Unavail able Encounter Details Date Type Department Care Team Description 04/09/2021 SCAN Medical Records [address] [place] [address] Abstract, Provider Saldana-saldana disease; Down syndrome Social History Tobacco Use Types Packs/Day Years Used Date Smoking Tobacco: Never Smokeless Tobacco: Never Alcohol Use Standard Drinks/Week Comments No 0 (1 standard drink = 0.6 oz pur e alcohol) Sex Assigned at Date Recorded Not on file COVID-19 Exposure Response Date Recorded In the last month, have you been in contact with someone who was confirmed or suspected to have Coronavirus / COVID-19? 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
--- OUTSIDE RECORDS SUMMARY | 2025-08-20 19:24 | XMS_ITS | Encounter Summary ---
Author Organization [facility] Address [address] [place] [address] Care Team Providers Care Brand Executive Name Role Phone Justin Kim MD Primary Care Provider Unavail able Encounter Details Date Type Department Care Team Description 07/30/2013 Medical Investigator Report Medical Records [address] [place] [address] Dejan Pete MD Social History Tobacco Use Types Packs/Day [...] on filedocumented in this encounter Care Teams Brand Executive Relationship Specialty Start Date End Date Justin Kim MD PCP - General Internal Medicine 11/09/12 documented as of this encounter
--- OUTSIDE RECORDS SUMMARY | 2025-08-20 19:24 | XMS_ITS | Encounter Summary ---
Author Organization [facility] Address [address] [place] [address] Care Team Providers Care Lean Six Sigma Senior Specialist Name Role Phone Justin Kim MD Primary Care Provider Unavail able Encounter Details Date Type Department Care Team Description 04/19/2019 Transfer Records Medical Records [address] [place] [address] Abstract, Provider Social History Tobacco Use Types [...] on filedocumented in this encounter Care Teams Lean Six Sigma Senior Specialist Relationship Specialty Start Date End Date Justin Kim MD PCP - General Internal Medicine 11/09/12 documented as of this encounter
--- OUTSIDE RECORDS SUMMARY | 2025-08-20 19:24 | XMS_ITS | Encounter Summary ---
Author Organization [facility] Address [address] [place] [address] Care Team Providers Care Customer Service Attendant Name Role Phone Justin Kim MD Primary Care Provider Unavail able Encounter Details Date Type Department Care Team Description 07/15/2013 Sustainable Design Consultant Report Medical Records [address] [place] [address] Social History Tobacco Use Types Packs/Day Years [...] on filedocumented in this encounter Care Teams Customer Service Attendant Relationship Specialty Start Date End Date Justin Kim MD PCP - General Internal Medicine 11/09/12 documented as of this encounter
--- OUTSIDE RECORDS SUMMARY | 2025-08-20 19:24 | XMS_ITS | Encounter Summary ---
Author Organization [facility] Address [address] [place] [address] Care Team Providers Care Bird Trapper Name Role Phone Justin Kim MD Primary Care Provider Unavail able Encounter Details Date Type Department Care Team Description 03/25/2019 Machine Designer Report Medical Records [address] [place] [address] Leena Dorsey Social History Tobacco Use Types Packs/Day Years [...] on filedocumented in this encounter Care Teams Bird Trapper Relationship Specialty Start Date End Date Justin Kim MD PCP - General Internal Medicine 11/09/12 documented as of this encounter
--- OUTSIDE RECORDS SUMMARY | 2025-08-20 19:24 | XMS_ITS | Encounter Summary ---
Author Organization [facility] Address [address] [place] [address] Care Team Providers Care Media Center Assistant Name Role Phone Justin Kim MD Primary Care Provider Unavail able Encounter Details Date Type Department Care Team Description 01/28/2015 Shot Lighter Report Medical Records [address] [place] [address] Kwame De La Fuente MD Social History [...] on filedocumented in this encounter Care Teams Media Center Assistant Relationship Specialty Start Date End Date Justin Kim MD PCP - General Internal Medicine 11/09/12 documented as of this encounter
--- OUTSIDE RECORDS SUMMARY | 2025-08-20 19:24 | XMS_ITS | Encounter Summary ---
Author Organization [facility] Address [address] [place] [address] Care Team Providers Care Special Forces Medical Sergeant Name Role Phone Justin Kim MD Primary Care Provider Unavail able Encounter Details Date Type Department Care Team Description 06/28/2013 Food Service Hotel Runner Report Medical Records [address] [place] [address] Kwame De La Fuente MD Social History [...] on filedocumented in this encounter Care Teams Special Forces Medical Sergeant Relationship Specialty Start Date End Date Justin Kim MD PCP - General Internal Medicine 11/09/12 documented as of this encounter
--- OUTSIDE RECORDS SUMMARY | 2025-08-20 19:24 | XMS_ITS | Encounter Summary ---
Author Organization [facility] Address [address] [place] [address] Care Team Providers Care Telephoner Name Role Phone Justin Kim MD Primary Care Provider Unavail able Encounter Details Date Type Department Care Team Description 01/20/2014 Cold Patcher Report Medical Records [address] [place] [address] Kwame De La Fuente MD Social History [...] on filedocumented in this encounter Care Teams Telephoner Relationship Specialty Start Date End Date Justin Kim MD PCP - General Internal Medicine 11/09/12 documented as of this encounter
--- OUTSIDE RECORDS SUMMARY | 2025-08-20 19:24 | XMS_ITS | Encounter Summary ---
Author Organization [facility] Address [address] [place] [address] Care Team Providers Care All Round Logger Name Role Phone Justin Kim MD Primary Care Provider Unavail able Encounter Details Date Type Department Care Team Description 04/10/2014 Gate Supervisor Report Medical Records [address] [place] [address] Jeaneth Tapia Social History Tobacco Use Types Packs/Day Years [...] on filedocumented in this encounter Care Teams All Round Logger Relationship Specialty Start Date End Date Justin Kim MD PCP - General Internal Medicine 11/09/12 documented as of this encounter
--- OUTSIDE RECORDS SUMMARY | 2025-08-20 19:24 | XMS_ITS | Encounter Summary ---
Author Organization [facility] Address [address] [place] [address] Care Team Providers Care Linoleum Floor Installer Name Role Phone Justin Kim MD Primary Care Provider Unavail able Encounter Details Date Type Department Care Team Description 01/29/2019 Orders Only Medicine/Pediatrics - [address] [phone] Justin Kim MD Preoperative examination; Screening for deficiency anemia Social History Tobacco Use Types Packs/Day Years Used Date Smoking Tobacco: Never Smokeless Tobacco: Never Alcohol Use Standard Drinks/Week Comments No 0 (1 standard drink = 0.6 oz pur e alcohol) Sex Assigned at Date Recorded Not on file documented as of this encounter Plan of Treatment Scheduled Orders Name Type Priority Associated Diagnoses Orde r Schedule BASIC METABOLIC PANEL Lab Routine Preoperative examination Expected: 01/29/2019 (Approximate), Expires: 01/29/2020 documented as of this encounter Results * (ABNORMAL) CBC (AUTO DIFF PLATELET) (07/24/2019 2:55 PM EDT) [facility] WHITE BLOOD COUNT 7.9 4.8 - 10.8 x10-3/uL 07/24/2019 7:04 PM EDT [facility] RED BLOOD COUNT 4.5 4.5 - 5.5 x10-6/uL 07/24/2019 7:04 PM EDT [facility] Hemoglobin 15.0 13.5 - 17.5 g/dL 07/24/2019 7:04 PM EDT [facility] Hematocrit 45.6 42 - 54 % 07/24/2019 7:04 PM EDT [facility] MEAN CORPUSCULAR VOLUME 102.5(H) 79 - 98 fL 07/24/2019 7:04 PM EDT [facility] HEMOGLOBIN 33.7(H) 27 - 32 pg 07/24/2019 7:04 PM EDT [facility]AN [facility]PUSCULAR HGB CONC 32.9 32 - 37 g/dL 07/24/2019 7:04 PM EDT [facility] RED CELL DISTRIBUTION WIDTH 13.9 11 - 15 % 07/24/2019 7:04 PM EDT [facility] PLT COUNT 286 130 - 400 x10-3/uL 07/24/2019 7:04 PM EDT [facility] MEAN PLATELET VOLUME 11.2(H) 7 - 11 fL 07/24/2019 7:04 PM EDT [facility] NRBC % AUTO 0.0 <1 % 07/24/2019 7:04 PM EDT [facility] NEUTROPHILS % 59.8 % 07/24/2019 7:04 PM EDT [facility] LYMPH % 26.9 % 07/24/2019 7:04 PM EDT [facility] MONO % 8.6 % 07/24/2019 7:04 PM EDT [facility] EOS % 2.6 % 07/24/2019 7:04 PM EDT [facility] BASO % 1.8 % 07/24/2019 7:04 PM EDT [facility] IMMATURE GRANULOCYTES % 0.3 % 07/24/2019 7:04 PM EDT [facility] NRBC # AUTO 0.00 <0.1 x10-3/uL 07/24/2019 7:04 PM EDT [facility] NEUT # 4.75 1.5 - 7.0 x10-3/uL 07/24/2019 7:04 PM EDT [facility] LYMPH # 2.13 1 - 5.0 x10-3/uL 07/24/2019 7:04 PM EDT [facility] MONO # 0.68 0.2 - 1.0 x10-3/uL 07/24/2019 7:04 PM EDT [facility] EOS # 0.21 0 - 0.5 x10-3/uL 07/24/2019 7:04 PM EDT [facility] BASO # 0.14 0 - 0.2 x10-3/uL 07/24/2019 7:04 PM EDT [facility] IMMATURE GRANULOCYTES # 0.02 0 - 0.03 x10-3/uL 07/24/2019 7:04 PM EDT [facility] 07/24/2019 2:55 PM EDT 07/24/2019 2:55 PM EDT Justin Kim MD LAB [facility] documented in this encounter Visit Diagnoses Diagnosis Preoperative examination Preoperative examination, unspecified Screening for deficiency anemia Screening for other and unspecified deficiency anemia documented in this encounter Care Teams Linoleum Floor Installer Relationship Specialty Start Date End Date Justin Kim MD PCP - General Internal Medicine 11/09/12 documented as of this encounter
--- OUTSIDE RECORDS SUMMARY | 2025-08-20 19:24 | XMS_ITS | Encounter Summary ---
Author Organization [facility] Address [address] [place] [address] Care Team Providers Care Tire Bagger Name Role Phone Justin Kim MD Primary Care Provider Unavail able Encounter Details Date Type Department Care Team Description 05/18/2020 [facility] [address] [place] [address] Md Vicki Social History Tobacco Use Types Packs/Day Years [...] on filedocumented in this encounter Care Teams Tire Bagger Relationship Specialty Start Date End Date Justin Kim MD PCP - General Internal Medicine 11/09/12 documented as of this encounter
--- OUTSIDE RECORDS SUMMARY | 2025-08-20 19:24 | XMS_ITS | Encounter Summary ---
Author Organization [email or web address] Address [address] [place] [address] Care Team Providers Care Neighborhood Service Center Director Name Role Phone Justin Kim MD Primary Care Provider Unavail able Reason for Visit * Reason Onset Date Comments Form 09/06/2019 [facility] Encounter Details Date Type Department Care Team Description 09/06/2019 Telephone Medicine/Pediatrics - [address] [phone] Justin Kim MD Form ([facility]) Social History Tobacco Use Types Packs/Day Years Used Date Smoking Tobacco: Never Smokeless Tobacco: Never Alcohol Use Standard Drinks/Week Comments No 0 (1 standard drink = 0.6 oz pur e alcohol) Sex Assigned at Date Recorded Not on file documented as of this encounter Miscellaneous Notes * Telephone Encounter - Libia Stewart - 09/06/2019 3:01 PM EST Received a form from [facility] for Dr. Kim to review, sign, please call mother when ready at [phone]. Form placed in Nursing's inbox for review and signature. documented in this encounter Plan of Treatment Not on file documented as of this encounter Visit Diagnoses Not on filedocumented in this encounter Care Teams Neighborhood Service Center Director Relationship Specialty Start Date End Date Justin Kim MD PCP - General Internal Medicine 11/09/12 documented as of this encounter
--- OUTSIDE RECORDS SUMMARY | 2025-08-20 19:24 | XMS_ITS | Clinical Summary ---
Author Organization [facility] Address [facility] [place] [address] [address] Phone Care Team Providers Care Sandblast Carver Name Role Phone Justin Kim MD Primary Care Provider [phone] Active Problems Problem Noted Date Diagnosed Date Moyamoya 10/15/2024 Social History Tobacco Use Types Packs/Day Years Used Date Smoking Tobacco: Never Assessed Education Answer Date Recorded Are you interested in more education? Not on cintia e 06/05/2024 Are you concerned about learning? Not on file 06/05/2024 No 06/05/2024 No 06/05/2024 Digital Access Answer Date Recorded No 06/05/2024 No 06/05/2024 Reliable internet access at home? Not on file 06/05/2024 Device with a working camera? Not on file Sex and Gender Information Value Date Recorded Sex Assigned at Not on file Legal Sex Male 3:43 PM EDT Gender Identity Not on file Sexual Orientation Not on file Plan of Treatment Health Maintenance Due Date Last Done Comments LIPID PANEL 1988 DEPRESSION SCREENING 2000 SMOKING Hx and SMOKELESS TOBACCO SCREENING 2001 HEPATITIS C SCREENING 2006 HIV ONE-TIME SCREENING (18-65 YEARS) 2006 INFLUENZA VACCINE (#1) 2025 , 09/16/2023, 06/17/2022, Additional history exists COVID-19 VACCINE (2024- season) 2025 08/10/2024, 10/01/2023, 06/17/2022, Additional history exists Adult Td,Tdap Booster 07/13/2028 07/13/2018 , 12/21/2007, 11/30/2000 HIB VACCINES Completed 05/16/1990 IPV VACCINES Completed 11/24/1993, 05/02, 03/21/1989, Additional history exists MENINGOCOCCAL VACCINES (ACWY) Completed 12/18/2006 HEPATITIS A VACCINES Completed 06/21/2007, 12/19/19 07 PNEUMOCOCCAL VACCINES (0-49 years) Aged Out 07/06/2020 No longer eligible based on patient's age to complete this topic MENINGOCOCCAL VACCINES (B) Aged Out N o longer eligible based on patient's age to complete this topic Medical Devices [place] [address] [facility] [place] [address] [facility] [place] [facility] [place] [facility] [place] [facility] Care Teams Sandblast Carver Relationship Specialty Start Date End Date Justin Kim MD [address] [place] [id number] PCP - General Internal Medicine 06/04/24 Additional Source Comments The information contained in this document represents components of the legal health record. It is not the complete legal health record.[facility]
--- OUTSIDE RECORDS SUMMARY | 2025-08-20 19:24 | XMS_ITS | Encounter Summary ---
Author Organization [email or web address] [facility] Address [address] [place] [address] Care Team Providers Care Water Quality Technician Name Role Phone Justin Kim MD Primary Care Provider Unavail able Reason for Visit * Reason Onset Date Comments Spanish Speaking Nanny Feedback 04/03/2014 Audiology Encounter Details Date Type Department Care Team Description 04/03/2014 Telephone Medicine/Pediatrics - [address] [phone] Justin Kim MD Spanish Speaking Nanny Feedback (Audiology) Social History Tobacco Use Types Packs/Day Years Used Date Smoking Tobacco: Never Smokeless Tobacco: Never Alcohol Use Standard Drinks/Week Comments No 0 (1 standard drink = 0.6 oz pur e alcohol) Sex Assigned at Date Recorded Not on file documented as of this encounter Miscellaneous Notes * Telephone Encounter - Brigette Yap - 04/03/2014 10:52 AM EDT Appointment scheduled for May 22 Order faxed to [facility]. documented in this encounter Plan of Treatment Not on file documented as of this encounter Visit Diagnoses Not on filedocumented in this encounter Care Teams Water Quality Technician Relationship Specialty Start Date End Date Justin Kim MD PCP - General Internal Medicine 11/09/12 documented as of this encounter
--- OUTSIDE RECORDS SUMMARY | 2025-08-20 19:24 | XMS_ITS | Encounter Summary ---
Author Organization [facility] Address [address] [place] [address] Care Team Providers Care Inspector And Hand Packager Name Role Phone Justin Kim MD Primary Care Provider Unavail able Reason for Visit * Reason Onset Date Comments refill request 01/13/2020 Encounter Details Date Type Department Care Team Description 01/13/2020 Refill Medicine/Pediatrics - [address] [phone] Justin Kim MD refill request Social History Tobacco Use Types Packs/Day Years Used Date Smoking Tobacco: Never Smokeless Tobacco: Never Alcohol Use Standard Drinks/Week Comments No 0 (1 standard drink = 0.6 oz pur e alcohol) Sex Assigned at Date Recorded Not on file documented as of this encounter Miscellaneous Notes * Telephone Encounter - Kylah Daniels - 01/13/2020 3:00 PM EDT [facility] 09/17/19 * Telephone Encounter - Shikha Mays - 01/13/2020 11:30 AM EDT Patient would like script to be: E-PRESCRIBED/FAXED TO PHARMACY WHEN WAS THE PATIENT'S LAST APPOINTMENT IN ADULT MEDICINE? 09/17/19 WHEN WAS THE LAST TIME THE PATIENT SAW THEIR PCP? 07/24/19 Does patient have an upcoming appointment? No, letter mailed to patient to schedule an appointment (THE MEDICATION REQUESTED IS ON THE MED LIST ABOVE) All of the medications requested were on the CURRENT MEDS list Did you check the Pharmacy information above?: YES Patient wants: 90 -day supply Is this a mail order prescription request ? NO If the refill is from a FAXED refill request what is the RX # listed on the fax? [id number] Patients current insurance carrier is: Payor: [employer] FFS / Plan: DILSHAD OSHEA $20 / Product Type: Brighter Dental CareO [id number] documented in this encounter Plan of Treatment Not on file documented as of this encounter Visit Diagnoses Not on filedocumented in this encounter Care Teams Inspector And Hand Packager Relationship Specialty Start Date End Date Justin Kim MD PCP - General Internal Medicine 11/09/12 documented as of this encounter
--- OUTSIDE RECORDS SUMMARY | 2025-08-20 19:24 | XMS_ITS | Clinical Summary ---
Author Organization [facility] Address [address] [place] [address] Care Team Providers Care Tub Tender Name Role Phone Justin Kim MD Primary Care Provider Unavail able Allergies Active Allergy Reactions Severity Noted Date Comments Clarithromycin-Fd&C Yellow #10 11/19 Cephalexin Swelling/Edema High 04/03/2014 Medications Medication Sig Dispensed Refills Start Date End Date Status Cholecalciferol (VITAMIN D) 1000 UNITS TABS Take 1 Tab by mouth daily. 0 Active Loratadine (CLARITIN OR) Take 1 Tab by mouth daily. 0 Active aspirin 81 MG tablet Take 2 Tabs by mouth daily. 60 Tab 5 11/21/2012 Active Allopurinol Powder by Does not apply route. 0 02/23/2019 Active LOTEMAX SM 0.38 % Gel 0 08/21/2020 Act kannan First-Omeprazole 2 MG/ML Suspension Take 20 mg by mouth daily. 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 Hard of hearing 11/21/2012 Overview: Next hearing test due summer 2014 Seasonal allergies 11/21/2012 Psoriasis 11/21/2012 Overview: [place] D[facility] Plantar fasciitis 11/21/2012 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 Mild aortic regurgitation 11/21/2012 Overview: S/p VSD repair Dysphagia 11/21/2012 Overview: Sees speech therapist for choking issue with food; Dr Pete Resolved Problems Problem Noted Date Resolved Date Severe obesity 04/04/2014 04/17/2015 Overweight 11/21/2012 04/04/2014 Immunizations Name Administration Dates Next Due COVID-19 (Pfizer) 07/23/2021,12/27/2020,12/06/19 COVID-19 (Pfizer) Pt Reported 12/27/2020 DTaP 11/24/1993, 0,05/24/1989,03/21,01/30/1989 HIB 05/16/1990 Hepatitis A-2 dose (<19yrs) 06/21/2007, 7 Hepatitis B-3 Dose (<19yrs) 06/25/1999, 9,12/18/1998 Influenza (> 6 Months) 08/07/2016,2014,07/16/2014,07/15,06/23/2012,07/29/2011,07/09/2010 ,06/20/2009,08/05/2008,07/27/1995,10/1992 Influenza Flu (PT Reported) 07/08/2020 Influenza H1N1 Pandemic Flu Vaccine 08/20/2009 Influenza Vaccine-preservati ve Free-quadrivalent 4 Years 06/09/2021,07/24/2019 Influenza Vaccine-quadrivale nt 4 Years Plus 07/13/2018,07/10/2017 MMR (Vsuddjc-[id number]-Qaibmtc) 11/30/2000,05/15/199 0 Meningococcal (Menactra) 12/18/2006 PPD-Negative Response(External) 01/19/1995 Pneumoccoccal(Adult) Polysac charide PPSV23 07/06/2020 Polio (OPV) 11/24/1993, 0,03/21/1989,01/30 TD (STATE SUPPLIED FOR ADULT S AND CHILDREN) 07/13/2018,11/30/2000 Tdap (Adacel) 12/21/2007 Varicella 09/21/1995 Family History Medical History Relation Name Comments Hypertension Father CA Prostate Maternal Grandfather CA Breast Maternal Grandmother Other Mother BRCA negative CA Breast Other cousin CA Colon Paternal Grandfather in his 60's CAD Paternal Grandfather later i n life Diabetes Paternal Grandfather Hypertension Paternal Grandfather CAD Paternal Grandmother in her 40's Hypertension Paternal Grandmother Stroke Paternal Grandmother Alcohol and Other Drug Abuse Uncle 1 CA Prostate Uncle 2 Relation Name Status Comments Father Maternal Grandfather Maternal Grandmother Mother Other Paternal Grandfather Paternal Grandmother Uncle 1 Uncle 2 Social History Tobacco Use Types Packs/Day Years Used Date Smoking Tobacco: Never Smokeless Tobacco: Never Alcohol Use Standard Drinks/Week Comments No 0 (1 standard drink = 0.6 oz pur e alcohol) Sex Assigned at Date Recorded Not on file Last Filed Vital Signs Vital Sign Reading Time Taken Comments Blood Pressure 118/78 06/09/2021 3:10 PM EDT Pulse 77 06/09/2021 3:10 PM EDT Temperature 36.4 C (97.6 F) 09/17/2019 10:35 AM EST Respiratory Rate 16 09/29/2020 11:23 AM EST Oxygen Saturation 92% 09/17/2019 11:12 AM EST Inhaled Oxygen Concentration - - Weight 114.8 kg (253 lb) 06/09/2021 3:10 PM EDT Height 166.4 cm (5' 5.5 ) 06/09/2021 3:10 PM EDT Body Mass Index 41.46 06/09/2021 3:10 PM EDT Plan of Treatment Health Maintenance Due Date Last Done Comments BMI CHECK/ADVISE 10/02/2024 09/29/2020, , 03/26/2019, Additional history exists Covid-19 Vaccine (5 - 2022-2 4 season) 2025 07/23/2021, 12/27/2020, 12/27/2020, Additional history exists INFLUENZA (#1) 2025 06/09/2021, 04/2020, 07/24/2019, Additional history exists BASELINE HEALTH EXAM 18-39 09/29/202509/29, 07/24/2019, 07/13/2018, Additional history exists CHOLESTEROL SCREENING 09/29/2025 09/29/2020 , 07/09/2018, 04/25/2016, Additional history exists DTAP/TDAP/TD (8 - Td or Tdap) 07/13/2028, 12/21/2007, 11/30/2000, Additional history exists PNEUMOCOCCAL VACCINE FOR HIG H RISK PATIENTS (#1) 2053 07/06/2020 Care Teams Tub Tender Relationship Specialty Start Date End Date Justin Kim MD PCP - General Internal Medicine 11/09/12
--- OUTSIDE RECORDS SUMMARY | 2025-08-20 19:24 | XMS_ITS | Encounter Summary ---
Author Organization [facility] Address [address] [place] [address] Care Team Providers Care Transport Tank Technician Name Role Phone Justin Kim MD Primary Care Provider Unavail able Encounter Details Date Type Department Care Team Description 09/17/2019 Old Medical Records Medical Records [address] [place] [id number] Abstract, Provider Social History Tobacco Use Types [...] on filedocumented in this encounter Care Teams Transport Tank Technician Relationship Specialty Start Date End Date Justin Kim MD PCP - General Internal Medicine 11/09/12 documented as of this encounter
--- OUTSIDE RECORDS SUMMARY | 2025-08-20 19:24 | XMS_ITS | Encounter Summary ---
Author Organization [facility] Address [address] [place] [address] Care Team Providers Care Information Lead Name Role Phone Justin Kim MD Primary Care Provider Unavail able Encounter Details Date Type Department Care Team Description 04/24/2013 Stamping Mill Tender Report Medical Records [address] [place] [id number] Dejan Pete MD Social History Tobacco Use [...] on filedocumented in this encounter Care Teams Information Lead Relationship Specialty Start Date End Date Justin Kim MD PCP - General Internal Medicine 11/09/12 documented as of this encounter
--- OUTSIDE RECORDS SUMMARY | 2025-08-20 19:24 | XMS_ITS | Encounter Summary ---
Author Organization [facility] Address [facility] [place] [address] Care Team Providers Care Director Of Clinical Applications Name Role Phone Justin Kim MD Primary Care Provider Unavail able Encounter Details Date Type Department Care Team Description 03/29/2022 Geological Engineer Report Medical Records [address] [place] [id number] Kwame De La Fuente MD Social History [...] on filedocumented in this encounter Care Teams Director Of Clinical Applications Relationship Specialty Start Date End Date Justin Kim MD PCP - General Internal Medicine 11/09/12 documented as of this encounter
== END 2025-08-20 10:12 | disposition home or self-care (01) ==
LOC: HO.SH 10:11
PROVIDERS: Visit Provider Internal Medicine
DX: H90.3 Sensorineural hearing loss, bilateral (principal)
CPT/HCPCS: 92555; 92567; 92582; 92583; 92593; 99499